=== PATIENT | male | born 1955 | race Asian ===

== ENCOUNTER 2016-05-28 08:04 | Outpatient (CLI) | payer BC ==
[2016-05-28 09:55] LABS: BASOPHILS % (AUTO) 0.2 % (0.0-2.0); EOSINOPHILS # (AUTO) 0.1 /CMM (0.0-0.7); EOSINOPHILS % (AUTO) 0.6 % (0.0-6.0); HEMATOCRIT 41 % (39-51); LYMPHOCYTES # (AUTO) 0.9 /CMM (0.8-4.8); MEAN CORPUSCULAR HEMOGLOBIN 29 PG (26.0-33.0); MEAN CORPUSCULAR HGB CONC 34 g/dl (31.0-36.0); MEAN CORPUSCULAR VOLUME 85 fL (80-96); MONOCYTES # (AUTO) 0.9 /CMM (0.1-1.30); MONOCYTES % (AUTO) 10.1 % (2.0-12.0); NEUTROPHILS # (AUTO) 6.7 /CMM (1.8-8.9); NEUTROPHILS % (AUTO) 78.1 % (43.0-81.0); PLATELET COUNT (AUTO) 279 /CMM (150-450); RDW COEFFICIENT OF VARIATION 12.4 (11.5-15.0); RED BLOOD CELL COUNT(AUTO) 4.89 MIL/uL (4.5-6.0); WHITE BLOOD COUNT (AUTO) 8.6 K/uL (4.3-11.0)
[2016-05-28 10:25] LABS: ALBUMIN 3.3 g/dL (3.4-5.0); BILIRUBIN,TOTAL 0.7 mg/dL (0.2-1.0); CALCIUM, SERUM 8.9 mg/dL (8.5-10.1); CREATININE 0.9 mg/dL (0.6-1.3); POTASSIUM 3.8 mmol/L (3.5-5.1); TOTAL PROTEIN, SERUM 7.9 g/dL (6.4-8.2)
[2016-05-28 10:38] LABS: PROSTATE SPECIFIC ANTIGEN SCR 1.22 ng/mL (0.00-4.00); T4 (THYROXINE) 9.1 ug/dL (4.7-13.3); THYROID STIMULATING HORMONE 1.591 uIU/mL (0.358-3.74)
== END 2016-05-28 23:59 | disposition home or self-care (01) ==
LOC: LAB 08:04
DX: K60.2 Anal fissure, unspecified (principal)
CPT/HCPCS: 36415; 80053-TC; 80061-TC; 84153-TC; 84436-TC; 84439-TC; 84443-TC; 84479; 84550-TC; 85025-TC

== ENCOUNTER 2016-06-17 15:11 | Outpatient (CLI) | payer BC ==
[2016-06-17 16:19] LABS: APPEARANCE,URINE Slightly Cloudy (CLEAR); BILIRUBIN,URINE Negative (NEGATIVE); BLOOD, URINE Large Ery/uL (NEGATIVE); COLOR,URINE Yellow (YELLOW); KETONES,URINE Negative (NEGATIVE); LEUKOCYTE ESTERASE ,URINE Negative (NEGATIVE); NITRITE, URINE Negative (NEGATIVE); PROTEIN,URINE Negative (NEGATIVE); UGLUCOSE Negative (NEGATIVE); UROBILINOGEN,URINE 0.2 EU/dL (0.2)
[2016-06-17 16:30] LABS: ADD URINE CULTURE NO; BACTERIA,URINE Rare /HPF (None Seen); RBC,URINE TOO NUMEROUS TO COUN /HPF (0-2); SQUAMOUS EPITHELIAL CELL,UR Rare /HPF (None Seen); WBC,URINE 0-2 /HPF (0-3)
[2016-06-17 16:40] LABS: CREATININE 0.9 mg/dL (0.6-1.3)
[2016-06-18 08:10] LABS: THYROID PEROXIDASE (TPO) AB 14 IU/mL (0-34)
== END 2016-06-17 23:59 | disposition home or self-care (01) ==
LOC: LAB 15:11
PROVIDERS: ATTEND Family Medicine
DX: R31.21 Asymptomatic microscopic hematuria (principal)
CPT/HCPCS: 36415; 81000-TC; 82565-TC; 84520-TC; 86376; 87086-TC

== ENCOUNTER → 2016-06-18 | Outpatient (CLI) | payer BC ==
[~2016-06-18] MED LIST: CT SWABBABLE VALVE TRANS SET 1 EA INFUS.SET MC ONE; IOHEXOL-300 100 ML VIAL IV ONE; IV NS 0.9% 250 ML IV ONE
== END | disposition home or self-care (01) ==
LOC: CT 10:00
PROVIDERS: ATTEND Family Medicine
DX: N20.0 Calculus of kidney (principal); I70.0 Atherosclerosis of aorta; I87.8 Other specified disorders of veins; K76.89 Other specified diseases of liver; K31.89 Other diseases of stomach and duodenum; I70.8 Atherosclerosis of other arteries; M47.819 Spondylosis without myelopathy or radiculopathy, site unspecified
CPT/HCPCS: 74178; J7050; Q9967

== ENCOUNTER 2017-07-04 02:35 | Inpatient (IN) | payer BC ==
[~2017-07-04] VITALS: Ht 162.6 cm; Wt 84.1 kg
--- NOTE | 2017-07-04 02:50 | NUR ---
61 YO MALE BB FROM HOME, C/O ABD PAIN. PATIENT WAS ASSISTED TO ER BED, SKIN WARM AND DRY, RESP EVEN AND UNLABORED. 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 AWAITING ORDERS FORM PROVIDER, WILL CONTINUE TO MONITOR
[2017-07-04 03:02] LABS: BASOPHILS % (AUTO) 0.3 % (0.0-2.0); EOSINOPHILS % (AUTO) 0.5 % (0.0-6.0); HEMATOCRIT 41 % (39-51); HEMOGLOBIN 13.9 g/dL (13.5-17.5); LYMPHOCYTES # (AUTO) 1.7 /CMM (0.8-4.8); LYMPHOCYTES % (AUTO) 11.8 % (20.0-44.0); MEAN CORPUSCULAR HGB CONC 34 g/dl (31.0-36.0); MEAN CORPUSCULAR VOLUME 86 fL (80-96); MONOCYTES # (AUTO) 0.5 /CMM (0.1-1.30); MONOCYTES % (AUTO) 3.4 % (2.0-12.0); NEUTROPHILS # (AUTO) 11.9 /CMM (1.8-8.9); PLATELET COUNT (AUTO) 280 /CMM (150-450); RDW COEFFICIENT OF VARIATION 12.6 (11.5-15.0); RED BLOOD CELL COUNT(AUTO) 4.79 MIL/uL (4.5-6.0); WHITE BLOOD COUNT (AUTO) 14.2 K/uL (4.3-11.0)
[2017-07-04 03:14] LABS: ALBUMIN 4.4 g/dL (3.4-5.0); BILIRUBIN,DIRECT 0.1 mg/dL (0.0-0.2); BILIRUBIN,TOTAL 0.5 mg/dL (0.2-1.0); CALCIUM, SERUM 9.9 mg/dL (8.5-10.1); TOTAL PROTEIN, SERUM 8.4 g/dL (6.4-8.2)
[2017-07-04] MEDS ORDERED: HYDROMORPHONE INJ 2 MG/ML DISP.SYRIN ONE ×3 (03:22→05:03)
[2017-07-04] MEDS ORDERED: PANTOPRAZOLE 40 MG VIAL ONE (03:24)
[2017-07-04] MEDS ORDERED: PANTOPRAZOLE 40 MG VIAL IV ONE (03:30)
[2017-07-04] MEDS ORDERED: HYDROMORPHONE 1 MG/1 ML DISP.SYRIN IV ONE ×2 (03:30→05:30)
[2017-07-04 03:48] LABS: APPEARANCE,URINE CLEAR (CLEAR); BILIRUBIN,URINE NEGATIVE (NEGATIVE); BLOOD, URINE TRACE-INTA Ery/uL (NEGATIVE); COLOR,URINE YELLOW (YELLOW); KETONES,URINE NEGATIVE (NEGATIVE); LEUKOCYTE ESTERASE ,URINE NEGATIVE (NEGATIVE); NITRITE, URINE NEGATIVE (NEGATIVE); PROTEIN,URINE NEGATIVE (NEGATIVE); UGLUCOSE 1+ mg/dL (NEGATIVE); UROBILINOGEN,URINE 0.2 EU/dL (0.2)
[2017-07-04 04:01] LABS: BACTERIA,URINE None seen /HPF (None Seen); RBC,URINE 0-2 /HPF (0-2); SQUAMOUS EPITHELIAL CELL,UR Rare /HPF (None Seen); WBC,URINE O /HPF (0-3)
--- NOTE | 2017-07-04 04:22 | NUR ---
US TECH LEFT THE BEDSIDE.
[2017-07-04] MEDS ORDERED: PIPERACILLIN /TAZOBACTAM 3.375 G VIAL IV ONE (05:21)
[2017-07-04] MEDS ORDERED: PIPERACILLIN /TAZOBACTAM 3.375 G in IV D5W 50 ML IV ONE (05:30)
[2017-07-04] MEDS ORDERED: MORPHINE SULFATE INJ 2 MG/ML DISP.SYRIN IV PRN (05:30)
[2017-07-04] MEDS ORDERED: ACETAMINOPHEN 325 MG TABLET PO PRN (05:30)
[2017-07-04] MEDS ORDERED: HYDROCODONE/APAP 5/325MG 1 EACH TABLET PO PRN (05:30)
[2017-07-04] MEDS ORDERED: ONDANSETRON HCL/PF 4 MG/2 ML VIAL IVP PRN (05:30)
[2017-07-04] MEDS ORDERED: ZOLPIDEM TARTRATE 5 MG TABLET PO PRN (05:30)
[2017-07-04] MEDS ORDERED: Z GUARD REMEDY 2 OZ OINT TP PRN (05:30)
[2017-07-04] MEDS ORDERED: MAGNESIUM HYDROXIDE 30 ML UDC PO PRN (05:30)
[2017-07-04] MEDS ORDERED: MAG HYDROX/AL HYDROX/SIMETH 30 ML UDC PO PRN (05:30)
--- NOTE | 2017-07-04 05:35 | NUR ---
REPORT GIVEN TO WARREN FOR VIKKI
[2017-07-04] MEDS: IV D5/0.45 NACL 1,000 ML IV PRN ×2 (06:05→18:42)
--- NOTE | 2017-07-04 06:15 | NUR ---
MS/RN OPENING NOTES PT RECEIVED FROM ER VIA WHEELCHAIR. ON ROOM AIR, BREATHING EVEN AND UNLABORED. DENIES SOB. ABDOMINAL PAIN RATED 3-4/10. COMFORTABLE AFTER PAIN MEDICATION ADMINISTERED IN ER. IV TO RAC PATENT AND INTACT. ORIENTED PT TO ROOM AND CALL LIGHT. BED IN LOW/LOCKED POSITION WITH CALL LIGHT IN REACH. SIDE RAILS UXP2. PT MADE AWARE OF NPO STATUS. VERBALIZED UNDERSTANDING. WILL CONTINUE TO MONITOR
[2017-07-04 06:23] VITALS: BP 175/91
[2017-07-04] MEDS ORDERED: METF-440 PO (06:23)
--- NOTE | 2017-07-04 06:58 | NUR ---
MS/RN CLOSING NOTES PT ASLEEP, EASILY AROUSABLE TO NAME. REMAINS ON ROOM AIR, BREATHING EVEN AND UNLABORED. DENIES SOB. NPO STATUS MAINTAINED. IV TO RAC PATENT AND INTACT RUNNING IVF ORDERED. NO SIGNIFICANT CHANGES. BED REMAINS IN LOW/LOCKED POSITION WITH CALL LIGHT IN REACH. SIDE RAILS UXP2. WILL ENDORSE TO DAY SHIFT GIUSEPPE FLOREZ.
[2017-07-04] MEDS ORDERED: MORPHINE SULFATE INJ 4 MG/ML DISP.SYRIN IV PRN (07:30)
[2017-07-04 08:00] VITALS: BP 159/81
--- NOTE | 2017-07-04 08:00 | NUR ---
RN NOTES RECEIVED PATIENT IN THE ROOM, A/O X3/4, PATIENT HAS NO RESPIRATORY DISTRESS. PATIENT WAS COMPLAINING OF PAIN 2/3 BUT REFUSED PAIN MEDICATION AT THIS TIME. V/S STABLE, ENCOURAGED TO EXPRESS FEELINGS AND CONCERNS. INFUSING IV D5 1/2 NS AT 75 ML/HR INTACT ON RIGHT AC. PATIENT NPO. PATIENT AMBULATORY USING BATHROOM. PATIENT SELF CARE. CALL LIGHT WITHIN TO REACH. SAFETY PRECAUTION MAINTAINED ALL THE TIME.
--- NOTE | 2017-07-04 12:00 | NUR ---
RN NOTES SCHEDULED MEDICATION ADMINISTERED, NO ACUTE DISTRESS, PATIENT REFUSED PAIN AT THIS TIME, CALL LIGHT WITHIN TO REACH. NEXT TO THE BED. CONTINUED MONITORING.
[2017-07-04] MEDS: PIPERACILLIN /TAZOBACTAM 3.375 G in IV D5W 50 ML IV SCH ×3 (12:01→23:44)
--- NOTE | 2017-07-04 12:13 | NUR ---
RN NOTES PATIENT CLEAR LIQUID DIET. CONTINUED MONITORING FOR TOLERANCE. PATIENT REFUSED NAUSEA, AND VOMITING.
[2017-07-04 13:20] LABS: MAGNESIUM 2.3 mg/dL (1.8-2.4); PHOSPHORUS 3.1 mg/dL (2.5-4.9)
[2017-07-04 16:00] VITALS: BP 157/77
--- NOTE | 2017-07-04 17:00 | NUR ---
RN NOTES PATIENT CLEAR LIQUID DIET AT THIS TIME. PATIENT TOLERATED FLUIDS WELL. MEDICATION WERE ADMINISTERED FOR CONSTIPATED NOT EFFECTED YET. ENCOURAGED PATIENT TO MORE AMBULATE. SCHEDULED MEDICATION ADMINISTERED, V/S STABLE, CALL LIGHT WITHIN TO REACH. CONTINUED MONITORING. Addendum: 07/04/17 at 1940 by ELIEL GARZA RN LUIS SANTANA
--- NOTE | 2017-07-04 17:10 | NUR ---
RN NOTES PATIENT SEEN BY SURGEON Dr. CAVAZOS. PATIENT SCHEDULED SURGERY LAPAROSCOPIC CHOLECYSTECTOMY FOR 07/05/17. CONSENT T FORM SIGNED, TYPE AND SCREEN DONE. PATIENT STABLE AT THIS TIME. CONTINUED MONITORING.
--- NOTE | 2017-07-04 18:30 | NUR ---
RN NOTES PATIENT STABLE AT THIS TIE EATING DINNER, NO ACUTE DISTRESS, NO COMPLAINING OF N/V. NO PAIN AT THIS TIME. PATIENT SIGN CONSENT FORM FOR UPPER ENDOSCOPY ON 07/06/[address] PETERSON. CALL LIGHT WITHIN TO REACH. ENDORSED ONCOMING NURSE FOR CONTINUATION OF CARE Addendum: 07/04/17 at 1940 by ELIEL GARZA RN ABOVE NOTE IS WRONG PATIENT CHARTING.
--- NOTE | 2017-07-04 18:40 | NUR ---
RN NOTES PATIENT STABLE, INFUSING D5 1/2 NS AT 75 ML/HR, INTACT, NO C/O PAIN AT THIS TIME. ENDORSED ONCOMING NURSE FOR PLAN OF CARE.
--- NOTE | 2017-07-04 19:25 | NUR ---
MS/RN OPENING NOTES PT AWAKE, SITTING UP IN BED. ON ROOM AIR, BREATHING EVEN AND UNLABORED. NO C/O SOB OR PAIN AT THIS TIME. IV TO RAC PATENT AND INTACT RUNNING IVF ORDERED. PT TO BE NPO POST MIDNIGHT FOR POSSIBLE LAP SEJAL WITH DR. CAVAZOS. CONSENTS SIGNED AND IN THE CHART. FAMILY AT BEDSIDE. BED IN LOW/LOCKED POSITION WITH CALL LIGHT IN REACH. SIDE RAILS UPX2. WILL CONTINUE TO MONITOR
[2017-07-04 20:00] VITALS: BP 139/83
[2017-07-04] MEDS ORDERED: DEXTROSE 50%-WATER 50 ML DISP.SYRIN IV PRN (23:30)
[2017-07-04] MEDS ORDERED: hydrALAZINE HCL IV 20 MG VIAL IV PRN (23:30)
[2017-07-05] MEDS: PIPERACILLIN /TAZOBACTAM 3.375 G in IV D5W 50 ML IV SCH ×3 (06:30→17:10)
[2017-07-05] MEDS: BLOOD SUGAR DIAGNOSTIC 1 EACH STRIP IN SCH ×4 (06:30→21:23)
[2017-07-05 06:31] LABS: BASOPHILS % (AUTO) 0.4 % (0.0-2.0); EOSINOPHILS % (AUTO) 3.4 % (0.0-6.0); HEMATOCRIT 42 % (39-51); HEMOGLOBIN 14.4 g/dL (13.5-17.5); INR 0.96 (0.87-1.13); LYMPHOCYTES # (AUTO) 2.6 /CMM (0.8-4.8); MEAN CORPUSCULAR HGB CONC 34 g/dl (31.0-36.0); MEAN CORPUSCULAR VOLUME 87 fL (80-96); MONOCYTES # (AUTO) 0.6 /CMM (0.1-1.30); NEUTROPHILS # (AUTO) 3.7 /CMM (1.8-8.9); NEUTROPHILS % (AUTO) 52.2 % (43.0-81.0); PLATELET COUNT (AUTO) 257 /CMM (150-450); RDW COEFFICIENT OF VARIATION 12.9 (11.5-15.0); RED BLOOD CELL COUNT(AUTO) 4.84 MIL/uL (4.5-6.0); WHITE BLOOD COUNT (AUTO) 7.2 K/uL (4.3-11.0)
--- NOTE | 2017-07-05 06:44 | NUR ---
MS/RN CLOSING NOTES PT WITH EYES CLOSED. AROUSABLE TO NAME. FAMILY MEMBER AT BEDSIDE. REMAINS ON ROOM AIR, BREATHING EVEN AND UNLABORED. DENIES SOB OR PAIN AT THIS TIME. REMAINED COMFORTABLE AND SLEPT WELL DURING SHIFT. IV TO RAC PATENT AND INTACT RUNNING IVF ORDERED. NO SIGNIFICANT CHANGES OVERNIGHT. PT SCHEDULED FOR LAP SEJAL WITH DR. CAVAZOS TODAY AT 1000, CONSENTS SIGNED, CHECKLIST IN THE CHART. PT REMAINED NPO POST MIDNIGHT. PT AND FAMILY MEMBER MADE AWARE OF SURGERY TIME. KEPT PT COMFORTABLE DURING SHIFT. ALL NEEDS MET. BLOOD SUGAR THIS QJ=441, NO COVERAGE GIVEN, PT IS NPO. BED REMAINS IN LOW/LOCKED POSITION WITH CALL LIGHT IN REACH, SIDE RAILS UPX2. WILL ENDORSE TO DAY SHIFT RN VIKKI.
[2017-07-05 07:05] LABS: CALCIUM, SERUM 8.4 mg/dL (8.5-10.1); MAGNESIUM 2.3 mg/dL (1.8-2.4); PHOSPHORUS 2.6 mg/dL (2.5-4.9); POTASSIUM 3.6 mmol/L (3.5-5.1)
--- NOTE | 2017-07-05 07:51 | NUR ---
RN NOTES RECEIVED PATIENT IN THE BED RESTING. PATIENT NPO, SCHEDULED SURGERY AT 10 AM BY . PATIENT V/S TAKEN STABLE, NO COMPLAINING OF PAIN AT THIS TIME, NO N/V. INFUSING D5 1/2 NS AT 75 ML /HR INTACT. PATIENT USING BATHROOM. NEXT TO THE BED. CALL LIGHT WITHIN TO REACH. CONTINUED MONITORING.
[2017-07-05 08:00] VITALS: BP 138/84
[2017-07-05] MEDS ORDERED: ANESTHESIA TRAY IN PYXIS 1 EA TRAY MC ONE (09:08)
[2017-07-05] MEDS ORDERED: LIDOCAINE 0.5% HCL 50 ML VIAL ONE (09:08)
[2017-07-05] MEDS ORDERED: BUPIVACAINE 0.25% 75 MG/30 ML VIAL ONE (09:08)
--- NOTE | 2017-07-05 09:47 | NUR ---
RN NOTES PATIENT PARK INTERPRETIVE SPECIALIST FOR SURGERY AT THIS TIME, V/S STABLE.
[2017-07-05] MEDS ORDERED: MIDAZOLAM HCL 2 MG/2ML VIAL ONE (10:04)
[2017-07-05] MEDS ORDERED: FENTANYL PF 100MCG/2ML AMPUL ONE (10:04)
[2017-07-05] MEDS ORDERED: ROCURONIUM BROMIDE 50 MG/5 ML ONE (10:05)
[2017-07-05 12:55] VITALS: BP 129/74
--- NOTE | 2017-07-05 12:55 | NUR ---
RN NOTES PATIENT BACK FROM SURGERY AT THIS TIME. PATIENT AWAKE, NO COMPLAINING OF PAIN, NO SOB, NO RESPIRATORY DISTRESS, V/S TAKEN BP -129/74, P-78, R-18, T-97.8, 02-95 ROOM AIR. GIVEN PATIENT INSPIROMETER FOR BREATHING. PATIENT HAS A MID ABDOMEN 4 SMALL INCISIONS OPEN TO THE AIR, NO DRAINAGE, NO DRESSING. DVT PUMP ON. INFUSING LR AT 100 ML/HR. DR ORDER TAKEN AND CARRIED OUT. CALL LIGHT WITHIN TO REACH, SAFETY PRECAUTION MAINTAINED ALL THE TIME.
[2017-07-05] MEDS ORDERED: HYDROMORPHONE INJ 0.5 MG/0.5 ML SYRINGE IV PRN (13:00)
[2017-07-05] MEDS ORDERED: HYDROCODONE/APAP 5/325MG 1 EACH TABLET PO PRN (13:00)
[2017-07-05] MEDS: IV LR 1000 ML 1,000 ML IV PRN (13:16)
[2017-07-05 13:20] VITALS: BP 136/75
--- NOTE | 2017-07-05 13:28 | NUR ---
RN NOTES BS- 164 MG./DL, PATIENT REFUSED EAT COVERAGE NOT GIVEN, BP 136/75, P-74, 02-96 ROOM AIR, NO ACUTE DISTRESS, ENCOURAGED PATIENT TO USE SPIROMETER FOR BREATHING. PATIENT REFUSED P[AIN AT THIS TIME. WIFR NEAR TO THE BED, CONTINUED MONITORING.
--- NOTE | 2017-07-05 14:00 | NUR ---
RN NOTES PATIENT IN THE BED RESTING, NO ACUTE DISTRESS, NO C/O PAIN AT THIS TIME.V/S TAKEN BP- 139/84, P-83. CONTINUED MONITORING.
[2017-07-05 16:00] VITALS: BP 145/66
--- NOTE | 2017-07-05 16:00 | NUR ---
RN NOTES PET Dr CAVAZOS POST UP ORDER SAYS CONTINUE ANTIBIOTIC X3 DOSES. CONFIRMED ORDER WITH DR CAVAZOS, AND PHARMACY AWARE OF IT.
--- NOTE | 2017-07-05 16:23 | NUR ---
RN NOTES ASSIST PATIENT TO THE BATHROOM, NO ACUTE DISTRESS, V/S STABLE, NO N/V. CONTINUED MONITORING.
[2017-07-05] MEDS: INSULIN REGULAR, HUMAN 100 UNIT/ML 3 ML VIAL SQ PRN ×2 (17:22→21:41)
--- NOTE | 2017-07-05 17:23 | NUR ---
RN NOTES BS-176 MG/DL, ADMINISTERED 3 UNITS OF COVERAGE, AND SCHEDULED MEDICATION, V/S STABLE, PATIENT REFUSED PAIN AT THIS TIME. CALL LIGHT WITHIN TO REACH, CONTINUED MONITORING.
--- NOTE | 2017-07-05 18:32 | NUR ---
RN NOTES PATIENT STABLE AT THIS TIME V/S TAKEN BP -134/77, P-75, PATIENT REFUSED PAIN. PATIENT TOLERATED DINNER WELL. CALL LIGHT WITHIN TO REACH. NEXT TO THE BED. CONTINUED MONITORING. ENDORSED ONCOMING NURSE FOR PLAN OF CARE.
--- NOTE | 2017-07-05 19:26 | NUR ---
RN NOTE; RECEIVED PT IN BED AWAKE AND ALERT. BREATHING EVENLY. NO SOB. NAD .SKIN WARM AND DRY. SX SITES ON THE ABD X4 CLEAN AND INTACT. NO S/S OF REOPENING, NO DISCHARGES. NO C/O ABD PAIN. NO N/V. ON ONGOING IVF HYDRATION. JONATHON WELL. NEEDS ATTENDED. BED LOW LOCKED. CALL LIGHT WITHIN REACH. WILL CONT TO MONITOR .
[2017-07-05 20:00] VITALS: BP 142/75
[2017-07-05] MEDS ORDERED: ATORVASTATIN 10 MG TABLET PO SCH (22:00)
[2017-07-06] MEDS: PIPERACILLIN /TAZOBACTAM 3.375 G in IV D5W 50 ML IV SCH ×2 (00:05→06:14)
--- NOTE | 2017-07-06 00:06 | NUR ---
norco given as ordered per pt's request for c/o abd pain . will cont to monitor
[2017-07-06] MEDS: IV LR 1000 ML 1,000 ML IV PRN (00:09)
--- NOTE | 2017-07-06 06:48 | NUR ---
PT IN BED AWAKE AND ALERT. NO ACUTE EVENT DURING THE NIGHT, NO C/O PAIN OR DISCOMFORT. SX SITES INTACT. NEEDS ATTENDED. CALL LIGHT WITHIN REACH,. WILL CONT TO MONITOR AND WILL ENDORSE TO AM SHIFT FOR VIKKI.
[2017-07-06 06:49] LABS: BASOPHILS % (AUTO) 0.2 % (0.0-2.0); EOSINOPHILS % (AUTO) 0.4 % (0.0-6.0); HEMATOCRIT 38 % (39-51); HEMOGLOBIN 13.1 g/dL (13.5-17.5); LYMPHOCYTES % (AUTO) 21.7 % (20.0-44.0); MEAN CORPUSCULAR HGB CONC 35 g/dl (31.0-36.0); MEAN CORPUSCULAR VOLUME 87 fL (80-96); MONOCYTES # (AUTO) 0.7 /CMM (0.1-1.30); MONOCYTES % (AUTO) 7.7 % (2.0-12.0); NEUTROPHILS # (AUTO) 6.6 /CMM (1.8-8.9); PLATELET COUNT (AUTO) 241 /CMM (150-450); RDW COEFFICIENT OF VARIATION 12.7 (11.5-15.0); RED BLOOD CELL COUNT(AUTO) 4.39 MIL/uL (4.5-6.0); WHITE BLOOD COUNT (AUTO) 9.4 K/uL (4.3-11.0)
[2017-07-06] MEDS: BLOOD SUGAR DIAGNOSTIC 1 EACH STRIP IN SCH (07:01)
[2017-07-06 07:03] LABS: CALCIUM, SERUM 8.5 mg/dL (8.5-10.1); CREATININE 0.8 mg/dL (0.6-1.3)
--- NOTE | 2017-07-06 07:30 | NUR ---
MS/RN Patient received Patient received from brick pitcher. A/O X4, vital signs stable, no fever noted. Stating that pain scale is currently 3/10. Requesting to go home. Will follow up with MD.
[2017-07-06 08:00] VITALS: BP 150/76
[2017-07-06 08:13] VITALS: BP 150/76
--- NOTE | 2017-07-06 10:01 | NUR ---
MS/environmental maintenance worker order Per surgeon, patient able to be discharged to home today, needs to follow up in office in 7-10 days.
--- NOTE | 2017-07-06 11:41 | NUR ---
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 Heplock and name bands removed. Education provided to patient regarding signs of infection, including elevated temperature, increase in swelling around incision sites. Patient and stated understanding. Provided with copy of medical recorded and exit care. Needs to follow up with primary care doctor and Dr Carrillo only if any signs of infection are present. Provided with telephone number to office. Prescription for norco and colace given. Educated about the use of norco, including possible side effcts. Both patient and wifer stated understanding. All personal belongings returned to patient, providing transport.
== END 2017-07-06 12:30 | disposition home or self-care (01) | DRG 419 ==
LOC: ER 02:36 → MEDSG2 05:33
PROVIDERS: ADMIT Internal Medicine; ATTEND Hospitalist
DX: K80.12 Calculus of gallbladder with acute and chronic cholecystitis without obstruction (principal); E11.65 Type 2 diabetes mellitus with hyperglycemia; I10 Essential (primary) hypertension; E66.9 Obesity, unspecified; Z68.31 Body mass index [BMI] 31.0-31.9, adult; E78.5 Hyperlipidemia, unspecified; K21.9 Gastro-esophageal reflux disease without esophagitis; Z98.890 Other specified postprocedural states; D72.829 Elevated white blood cell count, unspecified; Z83.3 Family history of diabetes mellitus
CPT/HCPCS: 36415; 71045-TC; 76705-TC; 80048-TC; 80061-TC; 80076-TC; 81000-TC; 82962-TC; 83690-TC; 83735-TC; 84100-TC; 85025-TC; 85610-TC; 85730-TC; 86850-TC; 87081-TC; 88304-TC; 88305-TC; A4606; C9113; J1100; J1170; J1815; J1885; J2250; J2405; J2543; J2704; J2710; J3010; J3490; J7060; J7120; Z7610

== ENCOUNTER 2020-08-01 09:51 | Outpatient (CLI) | payer BC ==
[~2020-08-01 09:51] MED LIST changes: -CT SWABBABLE VALVE TRANS SET 1 EA INFUS.SET MC ONE; -IOHEXOL-300 100 ML VIAL IV ONE; -IV NS 0.9% 250 ML IV ONE; +METF-440 PO
[2020-08-01] MEDS ORDERED: BARIUM SULFATE SUSP 450 ML BOTTLE PO ONE (10:02)
[2020-08-01 10:59] LABS: BASOPHILS % (AUTO) 0.8 % (0.0-2.0); EOSINOPHILS % (AUTO) 2.2 % (0.0-6.0); HEMATOCRIT 44 % (39-51); HEMOGLOBIN 14.6 g/dL (13.5-17.5); LYMPHOCYTES # (AUTO) 1.5 K/uL (0.8-4.8); LYMPHOCYTES % (AUTO) 33.1 % (20.0-44.0); MEAN CORPUSCULAR HGB CONC 33 g/dl (31.0-36.0); MEAN CORPUSCULAR VOLUME 88 fL (80-96); MONOCYTES # (AUTO) 0.3 K/uL (0.1-1.30); MONOCYTES % (AUTO) 7.3 % (2.0-12.0); NEUTROPHILS # (AUTO) 2.6 K/uL (1.8-8.9); NEUTROPHILS % (AUTO) 56.6 % (43.0-81.0); PLATELET COUNT (AUTO) 224 K/uL (150-450); RED BLOOD CELL COUNT(AUTO) 5.02 MIL/uL (4.5-6.0); WHITE BLOOD COUNT (AUTO) 4.7 K/uL (4.3-11.0)
[2020-08-01 11:05] LABS: BILIRUBIN,URINE NEGATIVE (NEGATIVE); COLOR,URINE YELLOW (YELLOW); LEUKOCYTE ESTERASE ,URINE NEGATIVE (NEGATIVE); NITRITE, URINE NEGATIVE (NEGATIVE); PROTEIN,URINE TRACE mg/dl (NEGATIVE); UGLUCOSE >=1000 mg/dL (NEGATIVE); UROBILINOGEN,URINE 0.2 EU/dL (0.2)
[2020-08-01 11:15] LABS: IRON, SERUM 90 ug/dl (50-175); TOTAL IRON BINDING CAPACITY 274 ug/dl (250-450)
[2020-08-01 11:28] LABS: BACTERIA,URINE None seen /HPF (None Seen); SQUAMOUS EPITHELIAL CELL,UR Rare /HPF (None Seen); WBC,URINE 0-2 /HPF (0-3)
[2020-08-01 11:35] LABS: CHOLESTEROL 237 mg/dL (<200); FERRITIN 458 ng/mL (8-388); HDL CHOLESTEROL 70 mg/dL (40-60); LDL 142 mg/dL (0-99); PROSTATE SPECIFIC ANTIGEN SCR 2.77 ng/mL (0.00-4.00); THYROID STIMULATING HORMONE 1.377 uIU/mL (0.358-3.74); TRIGLYCERIDES 73 mg/dL (30-150); URIC ACID 4.3 mg/dL (2.6-7.2)
[2020-08-01 11:38] LABS: C-REACTIVE PROTEIN < 0.2 mg/dL (0.0-0.9)
[2020-08-01 11:43] LABS: ALANINE AMINOTRANSFERASE 30 U/L (12-78); ALKALINE PHOSPHATASE 77 U/L (46-116); AMYLASE 67 U/L (25-115); ASPARTATE AMINOTRANSFERASE 15 U/L (15-37); BILIRUBIN,TOTAL 0.8 mg/dL (0.2-1.0); CALCIUM, SERUM 8.9 mg/dL (8.5-10.1); CARBON DIOXIDE 24 mmol/L (21-32); CHLORIDE 101 mmol/L (98-107); CREATININE 0.9 mg/dL (0.6-1.3); GLUCOSE 276 mg/dL (74-106); LIPASE 214 U/L (73-393); SODIUM SERUM 134 mmol/L (136-145); TOTAL PROTEIN, SERUM 7.8 g/dL (6.4-8.2); UREA NITROGEN, BLOOD 13 mg/dL (7-18)
== END 2020-08-01 23:59 | disposition home or self-care (01) ==
LOC: CT 09:51
PROVIDERS: ATTEND Legal Medicine
DX: I10 Essential (primary) hypertension (principal); E11.9 Type 2 diabetes mellitus without complications; E78.5 Hyperlipidemia, unspecified; I70.0 Atherosclerosis of aorta; N20.0 Calculus of kidney; K57.30 Diverticulosis of large intestine without perforation or abscess without bleeding; K40.90 Unilateral inguinal hernia, without obstruction or gangrene, not specified as recurrent; R53.1 Weakness; M47.817 Spondylosis without myelopathy or radiculopathy, lumbosacral region; M43.17 Spondylolisthesis, lumbosacral region; Z00.00 Encounter for general adult medical examination without abnormal findings; Z90.49 Acquired absence of other specified parts of digestive tract
CPT/HCPCS: 36415; 80053-TC; 80061-TC; 81001; 82150-TC; 82306; 82607-TC; 82626; 82728-TC; 83540-TC; 83690-TC; 84153-TC; 84402; 84403; 84439-TC; 84443-TC; 84550-TC; 85025-TC; 85652-TC; 86140-TC; 87086-TC

== ENCOUNTER 2023-10-21 09:26 | Outpatient (CLI) | payer BC ==
[2023-10-21 10:43] LABS: APPEARANCE,URINE CLEAR (CLEAR); BILIRUBIN,URINE NEGATIVE (NEGATIVE); BLOOD, URINE NEGATIVE Ery/uL (NEGATIVE); COLOR,URINE YELLOW (YELLOW); KETONES,URINE NEGATIVE (NEGATIVE); LEUKOCYTE ESTERASE ,URINE NEGATIVE (NEGATIVE); NITRITE, URINE NEGATIVE (NEGATIVE); PH,URINE 6.5 (5.0-8.0); PROTEIN,URINE NEGATIVE (NEGATIVE); UGLUCOSE NEGATIVE (NEGATIVE); UROBILINOGEN,URINE 0.2 EU/dL (0.2)
[2023-10-21 10:44] LABS: BASOPHILS % (AUTO) 0.5 % (0.0-2.0); EOSINOPHILS # (AUTO) 0.1 K/uL (0.0-0.7); EOSINOPHILS % (AUTO) 1.7 % (0.0-6.0); HEMATOCRIT 42 % (39-51); HEMOGLOBIN 13.9 g/dL (13.5-17.5); LYMPHOCYTES % (AUTO) 34.9 % (20.0-44.0); MEAN CORPUSCULAR HEMOGLOBIN 29 PG (26.0-33.0); MEAN CORPUSCULAR HGB CONC 33 g/dl (31.0-36.0); MEAN CORPUSCULAR VOLUME 88 fL (80-96); MONOCYTES # (AUTO) 0.4 K/uL (0.1-1.30); MONOCYTES % (AUTO) 7.9 % (2.0-12.0); NEUTROPHILS # (AUTO) 3.1 K/uL (1.8-8.9); PLATELET COUNT (AUTO) 249 K/uL (150-450); RED BLOOD CELL COUNT(AUTO) 4.76 MIL/uL (4.5-6.0); RED CELL DISTRIBUTION WIDTH 13.6 % (11.5-15.0); WHITE BLOOD COUNT (AUTO) 5.6 K/uL (4.3-11.0)
[2023-10-21 11:16] LABS: PROSTATE SPECIFIC ANTIGEN SCR 5.08 ng/mL (0.00-4.00); THYROID STIMULATING HORMONE 1.85 uIU/mL (0.358-3.74); URIC ACID 5.6 mg/dL (2.6-7.2)
[2023-10-21 11:38] LABS: ALBUMIN 4.2 g/dL (3.4-5.0); BILIRUBIN,TOTAL 0.9 mg/dL (0.2-1.0); CALCIUM, SERUM 9.4 mg/dL (8.5-10.1); POTASSIUM 3.5 mmol/L (3.5-5.1); TOTAL PROTEIN, SERUM 8.1 g/dL (6.4-8.2)
[2023-10-22 07:07] LABS: FOLIC ACID 11.8 ng/mL (>3.0)
[2023-10-22 08:08] LABS: VIT D, 25-HYDROXY 36.1 ng/mL (30.0-100.0)
[2023-10-26 17:11] LABS: *TESTOSTERONE, FREE (DIRECT) 6.9 pg/mL (6.6-18.1)
== END 2023-10-21 23:59 | disposition home or self-care (01) ==
LOC: LAB 09:26
PROVIDERS: ATTEND Legal Medicine
DX: Z00.00 Encounter for general adult medical examination without abnormal findings (principal); E11.9 Type 2 diabetes mellitus without complications; N40.0 Benign prostatic hyperplasia without lower urinary tract symptoms; E78.00 Pure hypercholesterolemia, unspecified; R53.1 Weakness; E03.9 Hypothyroidism, unspecified; D64.9 Anemia, unspecified; E55.9 Vitamin D deficiency, unspecified
CPT/HCPCS: 36415; 80053-TC; 80061-TC; 82306; 82607-TC; 82728-TC; 83540-TC; 84153-TC; 84402-TC; 84439-TC; 84443-TC; 84550-TC; 85025-TC